=== PATIENT | male | born 1950 | race Caucasian/White ===

== ENCOUNTER → 2018-01-07 | Day surgery (SDC) | payer MEDICARE ==
[~2018-01-07] MED LIST: LIDOCAINE 2% INJ 100 MG/5 ML SDV (FOR ANES.) As Ordered; PROPOFOL 200 MG/20 ML VIAL As Ordered
[2018-01-07] MEDS: NS 1,000 ML IV (10:00)
== END | disposition home or self-care (01) ==
LOC: M OPP 09:33
DX: K22.70 Barrett's esophagus without dysplasia (principal); K22.8 Other specified diseases of esophagus; K44.9 Diaphragmatic hernia without obstruction or gangrene; K31.89 Other diseases of stomach and duodenum; I10 Essential (primary) hypertension; E78.5 Hyperlipidemia, unspecified; E11.9 Type 2 diabetes mellitus without complications; K21.9 Gastro-esophageal reflux disease without esophagitis; R12 Heartburn; D64.9 Anemia, unspecified; M19.90 Unspecified osteoarthritis, unspecified site; M54.9 Dorsalgia, unspecified; F32.9 Major depressive disorder, single episode, unspecified; N40.1 Benign prostatic hyperplasia with lower urinary tract symptoms; E66.9 Obesity, unspecified; Z87.891 Personal history of nicotine dependence; Z88.8 Allergy status to other drugs, medicaments and biological substances; Z88.5 Allergy status to narcotic agent; Z79.82 Long term (current) use of aspirin; Z79.899 Other long term (current) drug therapy; Z79.4 Long term (current) use of insulin
CPT/HCPCS: 43239

== ENCOUNTER → 2018-09-19 | Outpatient (REF) | payer MEDICARE ==
[2018-09-19 14:06] LABS: INFLUENZA A AMPLIFICATION NEGATIVE (NEGATIVE); INFLUENZA B AMPLIFICATION NEGATIVE (NEGATIVE)
== END ==
LOC: M LAB REF 12:39
DX: R50.9 Fever, unspecified (principal)
CPT/HCPCS: 87502

== ENCOUNTER → 2019-11-27 | Outpatient (REF) | payer MEDICARE ==
[~2019-11-27] MED LIST changes: +ASPI81TA26 PO; +ASTE0.15; +ATEN25TA PO; +ATOR80TA59 PO; +CIME-49 PO; +FERR1TAB8 PO; +GLIM4TAB3 PO; +INSULANT SC; +LEVOTAB10; -LIDOCAINE 2% INJ 100 MG/5 ML SDV (FOR ANES.) As Ordered; +LORA-243 PO; +LOSA25TA14 PO; +METF500T13 PO; +METF750T36 PO; +MONT10TA2; +OMEP-172 PO; +OMEP40CA97 PO; +ONGL1TAB9 PO; -PROPOFOL 200 MG/20 ML VIAL As Ordered; +SERT25TA85 PO; +VITA10006 PO; +VITA100067 PO
[2019-11-28 13:38] LABS: PERCENT SATURATION 12.9 % (19.7-50.0)
== END ==
LOC: M LAB REF 12:51
PROVIDERS: ATTEND Internal Medicine
DX: D50.9 Iron deficiency anemia, unspecified (principal)

== ENCOUNTER → 2020-01-18 | Outpatient (CLI) | payer OTHER ==
[~2020-01-18] MED LIST changes: -GLIM4TAB3 PO; +GLIM4TAB5 PO; -MONT10TA2; +MONT10TA4; -OMEP-172 PO; +OMEP1CAP73 PO
--- NOTE | 2020-01-18 10:55 | REP ---
Clinical: Kidney stone. Technique: Axial noncontrast images from the lung bases to the pubic symphysis with coronal and sagittal re-formations. Comparison: 09/09/2016. Findings: Evaluation of the urinary tract system demonstrates mild chronic-appearing bilateral perinephric stranding. There is no evidence for hydroureteronephrosis or nephroureterolithiasis. The right kidney includes posterior exophytic cyst measuring 5.3 cm maximal diameter along with smaller hypodensities which also likely represent simple/complex cysts and stable compared to 09/09/2016. Left kidney is without obvious cyst or mass. Bladder is normal. Liver, spleen, pancreas, gallbladder, and bilateral adrenal glands are normal for noncontrast evaluation. The enteric system is without obstruction or acute inflammatory process. There is a chronic ovoid intraluminal calcification measuring 3.5 cm diameter in the distal sigmoid colon which is unchanged in appearance or position as compared to 2016. Pelvis demonstrates prostatomegaly measuring up to approximately 5 cm maximal diameter and collapsed normal bladder. No pelvic fluid. No ascites. No free air. No significant adenopathy. Abdominal aorta without aneurysm. Incidental 2 cm fat containing periumbilical hernia noted. Impression: 1. Evaluation of the urinary tract system demonstrates chronic stable cystic changes to the right kidney and no evidence for hydronephrosis or nephroureterolithiasis. 2. Stable benign appearing calcified stone in the distal sigmoid colon unchanged in position or appearance and 2016. 3. Prostatomegaly. Electronically Signed by Conor Rios MD 01/18/2020 10:46 A
== END ==
LOC: M RAD 09:42
PROVIDERS: ATTEND Physician Assistant Medical
DX: R93.3 Abnormal findings on diagnostic imaging of other parts of digestive tract (principal); N40.0 Benign prostatic hyperplasia without lower urinary tract symptoms; K42.9 Umbilical hernia without obstruction or gangrene

== ENCOUNTER → 2020-01-22 | Outpatient (CLI) | payer OTHER ==
--- NOTE | 2020-01-22 08:15 | REP ---
Bilateral carotid artery duplex ultrasound: Peak flow velocity analysis: RIGHT LEFT ICA Peak flow velocity cm/sec 77.6 cm/sec 195.8 cm/sec ICA Diastolic flow velocity cm/sec 29.2 cm/sec 100.7 cm/sec ICA/CCA Ratio 0.8 cm/sec 2.5 cm/sec ECA Peak flow velocity cm/sec 104.7 cm/sec 91.0 cm/sec CCA Peak flow velocity cm/sec 96.1 cm/sec 81.1 cm/sec the The there is moderate atheromatous plaque in the left bulb and proximal ECA. There is heavy atheromatous plaque in the proximal left ICA. There is mild atheromatous plaque in the right bulb, ICA and ECA. The peak flow velocities in the left ICA indicate 50 - 69% stenosis. The remainder of the peak flow velocities indicate less than 50% stenosis. There is wall in the vertebral arteries bilaterally. Impression: 50 - 69% stenosis in the left ICA. Electronically Signed by Laureano Eng MD 01/22/2020 08:06 A
== END ==
LOC: M RAD 06:23
PROVIDERS: ATTEND Physician Assistant Medical
DX: I65.22 Occlusion and stenosis of left carotid artery (principal)

== ENCOUNTER → 2020-02-08 | Outpatient (REF) | payer OTHER ==
[2020-02-08 15:23] LABS: APPEARANCE, URINE CLEAR (CLEAR); COLOR, URINE YELLOW (YELLOW); SPECIFIC GRAVITY URINE AUTO 1.023 (1.002-1.035)
[2020-02-08 15:24] LABS: BILIRUBIN, URINE AUTO NEGATIVE (NEGATIVE); BLOOD, URINE BLOOD NEGATIVE (NEGATIVE); GLUCOSE, URINE (UA) AUTO NEGATIVE (NEGATIVE); KETONE, URINE AUTO NEGATIVE (NEGATIVE); LEUKOCYTE ESTERASE, URINE AUTO 1+ (NEGATIVE); NITRITE, URINE AUTO NEGATIVE (NEGATIVE); PROTEIN, URINE AUTO NEGATIVE (NEGATIVE); RBC, URINE AUTO 1 /HPF (0-3); SQUAMOUS EPITHELIAL CELL UR AU 0 /HPF (0-6); UROBILINOGEN, URINE AUTO 0.2 mg/dL (0.0-2.0); WBC, URINE AUTO 1 /HPF (0-3)
== END ==
LOC: M SMT 13:13
PROVIDERS: ATTEND Nurse Practitioner Women's Health
DX: N39.0 Urinary tract infection, site not specified (principal)
CPT/HCPCS: 51798; 81001; 87088; 87186; G0463

== ENCOUNTER → 2020-04-25 | Outpatient (REF) | payer MEDICARE ==
[2020-04-25 14:40] LABS: PERCENT SATURATION 12.4 % (19.7-50.0)
== END ==
LOC: M LAB REF 12:13
PROVIDERS: ATTEND Internal Medicine
DX: D50.9 Iron deficiency anemia, unspecified (principal)

== ENCOUNTER → 2020-05-16 | Outpatient (CLI) | payer MEDICARE, OTHER | LOC: M PLALAB 08:28 | PROVIDERS: ATTEND Nurse Practitioner Women's Health | DX: R97.20 Elevated prostate specific antigen [PSA] (principal) ==

== ENCOUNTER → 2020-07-04 | Outpatient (CLI) | payer OTHER ==
--- NOTE | 2020-08-23 07:52 | REP ---
CAROTID ULTRASOUND HISTORY: Carotid stenosis. TECHNIQUE: Real-time ultrasound evaluation and duplex Doppler interrogation of the extracranial cardiovasculature is performed. FINDINGS: There is moderate plaquing and narrowing in both carotid bulbs extending into the internal carotid arteries. There is mild elevation of the peak systolic velocity in the right internal carotid artery with elevation of the ICA to CCA ratio. There is elevated peak systolic velocity in the left carotid bulb up to 216 cm/s. Findings are compatible with stenosis at that location between 50% and 79% as seen on prior study of 01/22/2020. Luminal narrowing of the right ICA is less than 50%. There is normal direction of flow in both vertebral arteries. RIGHT LEFT Peak systolic velocity ICA 69.8 cm/s 127.0 cm/s End diastolic velocity ICA 25.0 cm/s 59.3 cm/s Peak systolic velocity CCA 89.1 cm/s 80.5 cm/s Peak systolic velocity ECA 82.7 cm/s 101.7 cm/s ICA/CCA ratio 0.78 1.58 IMPRESSION: Elevated peak systolic velocity in the left carotid bulb at 216 cm/s with moderate plaquing and narrowing bilaterally, more so on the left than on the right. Findings are again compatible with stenosis of the left carotid bulb between 50% and 79%, unchanged since prior study 01/22/2020. Luminal narrowing right ICA less than 50%. MTDD
== END ==
LOC: M RAD 10:00
PROVIDERS: ATTEND Physician Assistant
DX: I65.23 Occlusion and stenosis of bilateral carotid arteries (principal)

== ENCOUNTER → 2020-10-14 | Outpatient (REF) | payer MEDICARE ==
[2020-10-14 14:04] LABS: PERCENT SATURATION 13.4 % (19.7-50.0)
== END ==
LOC: M LAB REF 12:25
PROVIDERS: ATTEND Internal Medicine
DX: D50.9 Iron deficiency anemia, unspecified (principal)

== ENCOUNTER → 2021-01-20 | Outpatient (CLI) | payer OTHER ==
[~2021-01-20] MED LIST changes: +MONT10TA10; -MONT10TA4
--- NOTE | 2021-01-20 10:37 | REP ---
INDICATION: STENOSIS COMPARISON: 07/04/2020. TECHNIQUE: Real-time ultrasound evaluation and duplex Doppler interrogation of the extracranial carotid vasculature is performed. FINDINGS: Moderate diffuse plaquing is again noted in the common carotid arteries, carotid bulbs and internal carotid arteries bilaterally. Once again there is elevated peak systolic velocity in the left internal carotid artery with elevated ICA/CCA ratio compatible with stenosis 50-79%, unchanged. Luminal narrowing of the right internal carotid artery is less than but likely close to 50%. There is likely not significant stenosis of the right internal carotid artery. There is normal direction of flow in both vertebral arteries. RIGHT LEFT Peak systolic velocity ICA 131.8 cm/s 273 cm/s End diastolic velocity ICA 39.2 cm/s 71 cm/s Peak systolic velocity CCA 131.8 cm/s 93.1cm/s Peak systolic velocity ECA 140.9 cm/s 158.3 cm/s ICA/CCA ratio 1.0 2.9 IMPRESSION: No significant change compared to prior study. Duplex Doppler sonographic findings of stenosis left ICA 50-79%, and luminal narrowing right ICA less than, but likely close to, 50%. <Electronically signed by Laureano Lindquist > 01/20/21 1037
== END ==
LOC: M RAD 08:02
PROVIDERS: ATTEND Physician Assistant
DX: I65.23 Occlusion and stenosis of bilateral carotid arteries (principal)

== ENCOUNTER → 2021-04-03 | Outpatient (REF) | payer OTHER | LOC: M LAB REF 12:28 | PROVIDERS: ATTEND Internal Medicine | DX: D50.9 Iron deficiency anemia, unspecified (principal) ==

== ENCOUNTER → 2021-10-27 | Outpatient (CLI) | payer OTHER ==
[~2021-10-27] MED LIST changes: +LOSA25TA13 PO; -LOSA25TA14 PO; -MONT10TA10; +MONT10TA97; +OMEP40CA4 PO; -OMEP40CA97 PO
[2021-10-27 13:35] LABS: BASO % 0.3 % (0.0-1.0); EOS # 0.2 10^3/uL (0.0-0.5); EOS % 2.6 % (0.0-3.0); HEMATOCRIT 35.4 % (42.0-52.0); HEMOGLOBIN 10.7 g/dl (13.5-17.5); LYMPH # 1.1 10^3/uL (1.5-5.0); LYMPH % 18.9 % (24.0-44.0); MEAN CORPUSCULAR HEMOGLOBIN 25.5 pg (27.0-33.0); MEAN CORPUSCULAR HGB CONC 30.2 g/dl (32.0-36.5); MEAN CORPUSCULAR VOLUME 84.3 fl (80.0-96.0); MONO # 0.4 10^3/uL (0.0-0.8); MONO % 7.5 % (2.0-8.0); NEUTROPHILS % 70.4 % (36.0-66.0); PLATELET COUNT, AUTOMATED 112 10^3/uL (150-450); WHITE BLOOD COUNT 5.7 10^3/uL (4.0-10.0)
[2021-10-27 13:46] LABS: INR 1.09; PARTIAL THROMBOPLASTIN TIME 30.6 SECONDS (25.9-37.0); PROTHROMBIN TIME 14.5 SECONDS (12.7-14.5)
[2021-10-27 14:49] LABS: ALT/SGPT 34 U/L (12-78); BLOOD UREA NITROGEN 25 MG/DL (7-18); CALCIUM LEVEL 9.5 MG/DL (8.8-10.2); CARBON DIOXIDE LEVEL 26 MEQ/L (21-32); CHLORIDE LEVEL 106 MEQ/L (98-107); CREATININE FOR GFR 1.16 MG/DL (0.70-1.30); GLOMERULAR FILTRATION RATE > 60.0 (>42); GLUCOSE, FASTING 225 MG/DL (70-100); POTASSIUM SERUM 4.9 MEQ/L (3.5-5.1); SODIUM LEVEL 140 MEQ/L (136-145)
[2021-10-27 14:50] LABS: ALBUMIN 3.4 GM/DL (3.2-5.2); BILIRUBIN,TOTAL 0.4 MG/DL (0.2-1.0); TOTAL PROTEIN 7.1 GM/DL (6.4-8.2)
== END ==
LOC: M LAB 13:03
PROVIDERS: ATTEND Internal Medicine Gastroenterology
DX: D61.818 Other pancytopenia (principal)

== ENCOUNTER → 2021-10-31 | Outpatient (CLI) | payer OTHER ==
[~2021-10-31] MED LIST changes: +GASTROGRAFIN SOLUTION 30ML (Q9963) As Ordered ONE; +ISOVUE-370 76% 100ML VIAL As Ordered ONE; -LOSA25TA13 PO; +LOSA25TA14 PO; +MONT10TA10; -MONT10TA97
--- NOTE | 2021-11-02 06:20 | REP ---
INDICATION: PANCYTOPENIA FATTY LIVER. COMPARISON: 01/18/2020 TECHNIQUE: Axial contrast-enhanced images from the lung bases to the pubic symphysis using oral and 100 cc Isovue 370 intravenous contrast material. Coronal and sagittal reformations obtained. This CT examination was performed using the following dose reduction techniques: Automated exposure control, adjustment of mA and/or kv according to the patient's size, and the use of iterative reconstruction technique. FINDINGS: Lung bases are clear. Liver demonstrates mild fatty infiltration without hepatomegaly or focal hepatic lesion. Spleen, pancreas, bilateral adrenal glands and kidneys are normal. Incidental simple 5 cm exophytic right renal cyst and 1 cm cortical cyst noted. Cholelithiasis is suggested without acute cholecystitis. The enteric system including stomach, small, and large bowel appears normal. No evidence for obstruction or acute inflammatory process. Normal terminal ileum and appendix are identified in the right lower quadrant. 3 cm ovoid intraluminal density in the mid to distal ileum noted within the pelvis which likely represents ingested structure and should be correlated clinically. 1.5 cm chronic appearing fat containing periumbilical hernia noted. Pelvis demonstrates normal bladder and age-appropriate prostate/seminal vesicles. No ascites. No free air. No intraperitoneal or retroperitoneal adenopathy. Abdominal aorta and vasculature appear normal. Musculoskeletal structures are intact and without acute osseous abnormality. IMPRESSION: 1. Mild hepatosteatosis. No splenomegaly. 2. Cholelithiasis suggested without acute cholecystitis. 3. 3 cm ovoid density within the distal ileum warrants correlation with possible ingested material. No associated bowel obstruction. <Electronically signed by Conor Rios > 11/02/21 0616
== END ==
LOC: M RAD 12:07
PROVIDERS: ATTEND Internal Medicine Gastroenterology
DX: D61.818 Other pancytopenia (principal); K76.0 Fatty (change of) liver, not elsewhere classified
CPT/HCPCS: 74177; Q9963; Q9967

== ENCOUNTER → 2021-11-20 | Outpatient (REF) | payer OTHER ==
[~2021-11-20] MED LIST changes: -GASTROGRAFIN SOLUTION 30ML (Q9963) As Ordered ONE; -ISOVUE-370 76% 100ML VIAL As Ordered ONE; +LOSA25TA13 PO; -LOSA25TA14 PO; -MONT10TA10; +MONT10TA97
[2021-11-20 13:29] LABS: APPEARANCE, URINE CLEAR (CLEAR); BACTERIA, URINE AUTO NEGATIVE (NEGATIVE); BILIRUBIN, URINE AUTO NEGATIVE (NEGATIVE); BLOOD, URINE BLOOD NEGATIVE (NEGATIVE); COLOR, URINE YELLOW (YELLOW); GLUCOSE, URINE (UA) AUTO NEGATIVE (NEGATIVE); KETONE, URINE AUTO NEGATIVE (NEGATIVE); LEUKOCYTE ESTERASE, URINE AUTO NEGATIVE (NEGATIVE); NITRITE, URINE AUTO NEGATIVE (NEGATIVE); PROTEIN, URINE AUTO NEGATIVE (NEGATIVE); RBC, URINE AUTO 0 /HPF (0-3); SPECIFIC GRAVITY URINE AUTO 1.013 (1.002-1.035); SQUAMOUS EPITHELIAL CELL UR AU 0 /HPF (0-6); UROBILINOGEN, URINE AUTO 0.2 mg/dL (0.0-2.0); WBC, URINE AUTO 2 /HPF (0-3)
== END ==
LOC: M SMT 12:48
PROVIDERS: ATTEND Nurse Practitioner Women's Health
DX: R35.0 Frequency of micturition (principal)
CPT/HCPCS: 51798; 81001; 87086; G0463

== ENCOUNTER 2023-12-03 07:14 | Day surgery (SDC) | payer MEDICARE, OTHER ==
[~2023-12-03] VITALS: Ht 167.6 cm; Wt 99.2 kg
[~2023-12-03 07:14] MED LIST changes: +CLAR10CA3 PO; +DICY-61 PO; +FINA5TAB2 PO; +FLON1SPR NARES; +GLIP10TA PO; +GUAI20TA PO; +LIDOCAINE 2% 100MG/5ML SDV (FOR ANES.) As Ordered ONE; +LORA-1041 PO; +LOSA100T46 PO; -MONT10TA97; +MONT10TA97 PO; +NESI25TA PO; +NS 1,000 ML IV ONE; +ROSU40TA4 PO; +TAMS1CAP17 PO; +VITA500C3 PO; +VITMTA PO; +fentaNYL 100 MCG/2 ML INJECTION As Ordered ONE; +propofoL 500 MG/50 ML VIAL As Ordered ONE
[2023-12-03] MEDS ORDERED: ePHEDrine SULFATE 25 MG/5 ML(5MG/ML) SYRINGE As Ordered ONE (09:00)
[2023-12-03] MEDS ORDERED: PHENYLephrine 500MCG 5ML (100MCG/ML) SYRINGE As Ordered ONE (09:20)
[2023-12-03 09:42] VITALS: TEMP 98.7
[2023-12-03 10:11] VITALS: BP 128/74; O2SAT 99
== END 2023-12-03 17:48 | disposition home or self-care (01) ==
LOC: M OPP 07:14
PROVIDERS: ATTEND Internal Medicine Gastroenterology
DX: D12.2 Benign neoplasm of ascending colon (principal); D12.3 Benign neoplasm of transverse colon; D12.4 Benign neoplasm of descending colon; K57.30 Diverticulosis of large intestine without perforation or abscess without bleeding; K64.8 Other hemorrhoids; R19.5 Other fecal abnormalities; C7A.092 Malignant carcinoid tumor of the stomach; K29.70 Gastritis, unspecified, without bleeding; K22.89 Other specified disease of esophagus; K31.7 Polyp of stomach and duodenum; K31.89 Other diseases of stomach and duodenum; D50.9 Iron deficiency anemia, unspecified; R63.4 Abnormal weight loss; E11.9 Type 2 diabetes mellitus without complications; Z79.02 Long term (current) use of antithrombotics/antiplatelets; Z79.4 Long term (current) use of insulin; Z79.51 Long term (current) use of inhaled steroids; Z79.811 Long term (current) use of aromatase inhibitors; Z79.899 Other long term (current) drug therapy; Z88.5 Allergy status to narcotic agent; Z88.8 Allergy status to other drugs, medicaments and biological substances; Z95.5 Presence of coronary angioplasty implant and graft
CPT/HCPCS: 43239; 43251; 45385; 88305; J2371; J3010

== ENCOUNTER → 2023-12-06 | Outpatient (CLI) | payer MEDICARE, OTHER ==
[~2023-12-06] MED LIST changes: -LIDOCAINE 2% 100MG/5ML SDV (FOR ANES.) As Ordered ONE; -NS 1,000 ML IV ONE; -fentaNYL 100 MCG/2 ML INJECTION As Ordered ONE; -propofoL 500 MG/50 ML VIAL As Ordered ONE
[2023-12-06 14:14] LABS: BLOOD UREA NITROGEN 21 MG/DL (9-23); CREATININE FOR GFR 0.92 MG/DL (0.70-1.30); GLOMERULAR FILTRATION RATE > 60.0 (>42)
== END ==
LOC: M PLALAB 10:39
PROVIDERS: ATTEND Physician Assistant Medical
DX: R63.4 Abnormal weight loss (principal)

== ENCOUNTER → 2023-12-09 | Outpatient (CLI) | payer OTHER, MEDICARE ==
[~2023-12-09] MED LIST changes: +FERR324T2 PO; +GLIP5TAB20 PO; +GLUCAGON INJ 1MG VIAL As Ordered ONE; +ISOVUE-370 76% 100ML VIAL As Ordered ONE; +NEULUMEX 0.1% SUSPENSION 450ML BOTTLE (FORMERLY VOLUMEN) As Ordered ONE
== END ==
LOC: M RAD 08:48
PROVIDERS: ATTEND Physician Assistant Medical
DX: K44.9 Diaphragmatic hernia without obstruction or gangrene (principal); R16.2 Hepatomegaly with splenomegaly, not elsewhere classified; K42.9 Umbilical hernia without obstruction or gangrene; N40.0 Benign prostatic hyperplasia without lower urinary tract symptoms
CPT/HCPCS: 74177; J1610; Q9967

== ENCOUNTER 2023-12-13 11:44 | Day surgery (SDC) | payer OTHER, MEDICARE ==
[~2023-12-13] VITALS: Ht 167.6 cm; Wt 101.0 kg
[~2023-12-13 11:44] MED LIST changes: -GLUCAGON INJ 1MG VIAL As Ordered ONE; -ISOVUE-370 76% 100ML VIAL As Ordered ONE; -NEULUMEX 0.1% SUSPENSION 450ML BOTTLE (FORMERLY VOLUMEN) As Ordered ONE; +NS 1,000 ML IV ONE
[2023-12-13] MEDS ORDERED: propofoL 200 MG/20 ML VIAL As Ordered ONE (12:55)
[2023-12-13] MEDS ORDERED: fentaNYL 100 MCG/2 ML INJECTION As Ordered ONE (12:55)
[2023-12-13 13:30] VITALS: TEMP 97
[2023-12-13 13:54] VITALS: BP 130/70; O2SAT 94
== END 2023-12-13 13:57 | disposition home or self-care (01) ==
LOC: M OPP 11:44
PROVIDERS: ATTEND Internal Medicine Gastroenterology
DX: Z01.818 Encounter for other preprocedural examination (principal); K25.4 Chronic or unspecified gastric ulcer with hemorrhage; E11.9 Type 2 diabetes mellitus without complications; I25.10 Atherosclerotic heart disease of native coronary artery without angina pectoris; Z95.5 Presence of coronary angioplasty implant and graft; Z79.02 Long term (current) use of antithrombotics/antiplatelets; Z79.4 Long term (current) use of insulin; Z79.52 Long term (current) use of systemic steroids; Z79.83 Long term (current) use of bisphosphonates; Z79.899 Other long term (current) drug therapy; Z88.5 Allergy status to narcotic agent; Z88.8 Allergy status to other drugs, medicaments and biological substances
CPT/HCPCS: 43236; J3010

== ENCOUNTER → 2025-08-06 | Outpatient (CLI) | payer MEDICARE, OTHER ==
[~2025-08-06] MED LIST changes: +GLIP-318 PO; -GLIP5TAB20 PO; -NS 1,000 ML IV ONE; -ROSU40TA4 PO; +ROSU40TA81 PO
== END ==
LOC: M PLALAB 14:47
PROVIDERS: ATTEND Physician Assistant
DX: R97.20 Elevated prostate specific antigen [PSA] (principal)